=== PATIENT | female | born 1955 | race Caucasian/White ===

== ENCOUNTER 2024-02-03 16:29 | Outpatient (CLI) | payer MEDICARE, MEDICAID | END 2024-02-03 23:59 | disposition home or self-care (01) | LOC: MRI 16:29 | PROVIDERS: ATTEND Family Medicine Sports Medicine | DX: R22.32 Localized swelling, mass and lump, left upper limb (principal); M79.642 Pain in left hand; M79.641 Pain in right hand; M72.0 Palmar fascial fibromatosis [Dupuytren]; R22.30 Localized swelling, mass and lump, unspecified upper limb | CPT/HCPCS: 73218 ==

== ENCOUNTER 2024-06-02 06:45 | Outpatient (CLI) | payer MEDICARE, MEDICAID | END 2024-06-02 23:59 | disposition home or self-care (01) | LOC: MRI02 06:45 | PROVIDERS: ATTEND Family Medicine Sports Medicine | DX: M47.22 Other spondylosis with radiculopathy, cervical region (principal); M48.02 Spinal stenosis, cervical region; M50.33 Other cervical disc degeneration, cervicothoracic region | CPT/HCPCS: 72141 ==